=== PATIENT | female | born 1985 | race Caucasian/White ===

== ENCOUNTER 2017-01-30 15:29 | Emergency (ER) | payer OTHER ==
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
[~2017-01-30 15:29] MED LIST: AMOXICILLIN500 M1 PO; AUGMENTIN875 M1 PO; BACLOFEN PO; CELEXA PO; FLEXERIL10 M1 PO; HYDROCODON-ACE1 EAC7 PO; IBUPROFEN PO; KLONOPIN0.5 MG PO; NEURONTIN800 MG PO; TOPAMAX PO; ZYRTEC10 M2 PO
== END 2017-01-30 17:24 | disposition home or self-care (01) ==
LOC: SED 15:29
DX: S00.12XA Contusion of left eyelid and periocular area, initial encounter (principal); F17.210 Nicotine dependence, cigarettes, uncomplicated; Z88.2 Allergy status to sulfonamides; Z79.899 Other long term (current) drug therapy; W19.XXXA Unspecified fall, initial encounter; Y92.830 Public park as the place of occurrence of the external cause
CPT/HCPCS: 70450; 70486; 99284

== ENCOUNTER 2017-03-24 10:53 | Emergency (ER) | payer OTHER ==
[~2017-03-24] VITALS: Ht 170.2 cm; Wt 77.1 kg
--- NOTE | ~2017-03-24 | CR109 ---
[facility]. [facility] A Service of [facility] & [facility] RADIOLOGY TEXT RESULTS PATIENT: JAYLIN BALDERAS LOCATION: SED : [birth year] UNIT #: [id number] AGE: [address]: JOON UNDERWOOD SEX: F ORDER DR: [id number] [address] [id number] E MR#: [id number] Acc #: [id number] NAME: JAYLIN BALDERAS : 1985 SEX: F STUDY DATE/TIME: 03/24/2017 11:36 UNIT: SED ROOM: STUDY DESCRIPTION: CR Finger 2 View 2nd Rt Ordering Physician: [facility] MEDICAL IMAGING REPORT This report is preliminary unless electronic signature is present. EXAM Right second digit INDICATIONS Redness, pain and swelling in the right finger. History of IV drug use. FINDINGS 2 views of the right second digit without comparison. There is soft tissue swelling predominately around the proximal interphalangeal joint. No foreign body. No osseous abnormalities. IMPRESSION Soft tissue swelling surrounding the proximal interphalangeal joint of the second digit. Dictated by... Regino Cheung M.D. THIS IS AN ELECTRONICALLY VERIFIED REPORT Regino Cheung M.D. at 03/24/2017 3:56 PM ROSIE/sherrill TD: 03/24/2017 14:39 JOB #: [id number] MEDICAL IMAGING REPORT Page 1 of 1
[2017-03-24] MEDS ORDERED: KAPVAY0.1 MG (11:04)
== END 2017-03-24 13:24 | disposition home or self-care (01) ==
LOC: SED 10:53
DX: L03.011 Cellulitis of right finger (principal); F17.210 Nicotine dependence, cigarettes, uncomplicated; Z88.2 Allergy status to sulfonamides; Z86.19 Personal history of other infectious and parasitic diseases
CPT/HCPCS: 10060; 73140; 99283